=== PATIENT | male | born 1990 | race Asian ===

== ENCOUNTER 2023-12-26 14:31 | Emergency (ER) | payer SELFPAY ==
[2023-12-26 14:41] VITALS: TEMP 98.8; BMI 40.7
[2023-12-26] MEDS ORDERED: IBUPROFEN 400 MG TABLET (FP) PO ONE ×2 (15:48→15:51)
[2023-12-26] MEDS ORDERED: CYCLOBENZAPRINE HCL 10 MG TABLET (FP) PO ONE (15:48)
[2023-12-26] MEDS ORDERED: CYCLOBENZAPRINE HCL 5 MG TABLET ONE (15:52)
[2023-12-26 16:22] VITALS: BP 158/88; RESP 18
[2023-12-26 17:36] VITALS: PULSE 104
== END 2023-12-26 18:06 | disposition home or self-care (01) ==
LOC: FER 14:31
DX: M54.32 Sciatica, left side (principal); M79.605 Pain in left leg; M79.10 Myalgia, unspecified site
CPT/HCPCS: 99283-25